=== PATIENT | male | born 1990 | race Caucasian/White ===

== ENCOUNTER 2024-02-08 12:07 | Emergency (ER) | payer BC, MEDICAID ==
[~2024-02-08] VITALS: Ht 172.7 cm; Wt 68.0 kg
[2024-02-08 12:12] VITALS: BP_SYST 110; PULSE 70; RESP 18; TEMP 97.3; O2SAT 96
[2024-02-08 14:26] LABS: BARBITURATE, URINE NEGATIVE (NEG <=200); BENZODIAZEPINE, URINE NEGATIVE (NEG <=150); CANNABINOID, URINE POSITIVE (NEG <=50); COCAINE, URINE NEGATIVE (NEG <=150); METHAMPHETAMINES SCREEN,URINE NEGATIVE (NEG <=500); OPIATE, URINE NEGATIVE (NEG <=100); PHENCYCLIDINE SCREEN,URINE NEGATIVE (NEG <=25); UR TRICYCLIC ANTIDEPRESSANTS NEGATIVE (NEG <=300); URINE AMPHETAMINE NEGATIVE (NEG <=500); URINE METHADONE NEGATIVE (NEG <=200); URINE OXYCODONE SCREEN NEGATIVE (NEG <=100)
[2024-02-08 14:38] LABS: BASOPHILS % (AUTO) 0.6 % (0.0-2.0); EOSINOPHILS # (AUTO) 0.1 K/uL (0.0-0.4); HEMATOCRIT 45.4 % (36-54); HEMOGLOBIN 15.7 g/dL (14.0-18.0); MEAN CORPUSCULAR HEMOGLOBIN 31 pg (27-31); MEAN CORPUSCULAR HGB CONC 35 % (32-36); MEAN CORPUSCULAR VOLUME 90 fL (79.0-98.0); MONOCYTES # (AUTO) 0.5 K/uL (0.0-1.0); MONOCYTES % (AUTO) 8.1 % (1.7-9.3); NEUTROPHILS # (AUTO) 3.7 K/uL (1.8-7.7); NEUTROPHILS % (AUTO) 58.3 % (40.0-70.0); PLATELET COUNT (AUTO) 174 K/uL (130-430); RED BLOOD CELL COUNT(AUTO) 5.02 MIL/uL (4.2-6.2); RED CELL DISTRIBUTION WIDTH 12.8 % (9.0-15.0); WHITE BLOOD COUNT (AUTO) 6.4 K/uL (4.8-10.8)
[2024-02-08 14:43] LABS: ANION GAP 5 (5-15); CARBON DIOXIDE 30 mmol/L (23-29); CHLORIDE 103 mmol/L (98-107); CREATININE 1.19 mg/dL (0.55-1.30); GFR AFRICAN AMERICAN 92 mL/min (>90); GLUCOSE 84 mg/dL (74-106); LIPASE 20 U/L (16-77); POTASSIUM 4.2 mmol/L (3.5-5.1); SODIUM SERUM 138 mmol/L (136-145); UREA NITROGEN, BLOOD 18 mg/dL (8-21)
[2024-02-08 14:49] LABS: GFR NON AFRICAN-AMERICAN 76 mL/min (>90)
[2024-02-08] MEDS: LORazepam 2 MG/ML VIAL IVP ONE (16:35)
[2024-02-08] MEDS: PANTOPRAZOLE SODIUM 40 MG/VIAL (PROTONIX) IVP ONE (16:35)
[2024-02-08] MEDS ORDERED: AMOX-423 PO (17:21)
[2024-02-08] MEDS ORDERED: ZIT250 PO (17:23)
== END 2024-02-08 17:30 | disposition home or self-care (01) ==
LOC: SED 12:07
DX: J18.8 Other pneumonia, unspecified organism (principal); R07.89 Other chest pain; R50.9 Fever, unspecified; F41.9 Anxiety disorder, unspecified; J45.909 Unspecified asthma, uncomplicated; Z98.890 Other specified postprocedural states; Z88.2 Allergy status to sulfonamides
CPT/HCPCS: 99285; 96374; 71045; 96375; 80307; 80048; 83690; 85025; 85379; 84484; 36415; 93005; J2060; J2470